=== PATIENT | female | born 1950 | race Two or more races ===

== ENCOUNTER 2023-04-18 03:35 | Emergency (ER) | payer MEDICARE, SELFPAY ==
--- NOTE | ~2023-04-18 | CT_ITS ---
EXAMINATION: CT ABDOMEN AND PELVIS WITHOUT CONTRAST CLINICAL INFORMATION: Abdominal pain, distention and vomiting. COMPARISON: None available. TECHNIQUE: Multidetector volumetric imaging was performed from the superior aspect of the liver through the pubic symphysis. Sagittal and coronal reformatted images were obtained on the technologist's workstation. This CT examination was performed using dose optimization techniques as appropriate, variously including the following: *Automated exposure control *Adjustment of mA and/or kV according to patient size (this includes techniques or standardized protocols for targeted exams where dose is matched to indication/reason for exam; i.e. extremities or head) *Use of iterative reconstruction technique DLP: 597 mGy-cm FINDINGS: LUNG BASES: There is dependent bibasilar and right middle lobe atelectasis. The heart size is normal. LIVER, GALLBLADDER, AND BILIARY TREE: The liver is normal in size, shape, and attenuation. No focal hepatic lesion or biliary ductal dilatation is present. The gallbladder is unremarkable with no evidence of radiopaque gallstones, gallbladder wall thickening, or obvious pericholecystic inflammatory changes. PANCREAS: Unremarkable. SPLEEN: Unremarkable. ADRENAL GLANDS: Unremarkable. KIDNEYS AND URETERS: The kidneys are normal in size, shape, and attenuation. No hydronephrosis, hydroureter, or calculi seen. No perinephric stranding. BLADDER: Unremarkable. GASTROINTESTINAL TRACT: There is scattered diverticuli stool and gas seen throughout the colon without any distention or diverticulitis. The small bowel loops are normal caliber. Appendix is normal caliber.. There is no inflammatory process, free air or free fluid. ABDOMINAL WALL: No significant hernia is appreciated. LYMPH NODES: Normal. VASCULAR: Unremarkable. PELVIC VISCERA: Unremarkable. OSSEOUS STRUCTURES: There are degenerative disc changes with vacuum disc phenomena L4-L5 disc level and grade 1 retrolisthesis L4 over L5. No aggressive lytic or sclerotic process seen. The paravertebral soft tissues are normal. CT/CT abdomen pelvis wo IV con IMPRESSION: No acute intra-abdominal process seen. Colonic diverticulosis without diverticulitis. Mild constipation. Fleischner guidelines were followed.
[2023-04-18 03:37] VITALS: BP 154/69; PULSE 94; RESP 16; TEMP 36.7; O2SAT 94; BMI 30.7
--- NOTE | 2023-04-18 03:48 | PC.NURSE ---
Pt a&o, no sob or chest pain, pt reports having n/v since 11pm, had a hx of this 5 months ago, has been seen in GI, but no dx regarding symptom. Pt changed over, Labs collected and sent, Iv placed. Will continue to monitor.
[2023-04-18 03:55] LABS: Basophils Percent Auto 0.4 % (0-2); Eosinophils Absolute Auto 0.1 X10*3/uL (0.0-0.4); Eosinophils Percent Auto 0.6 % (0-4); Hematocrit 42.8 % (37.0-47.0); Hemoglobin 14.1 g/dl (12.0-16.0); Imm Gran Abs Auto 0.04 X10*3/uL (0.00-0.03); Imm Gran Pct Auto 0.4 % (0.0-0.4); Lymphocytes Absolute Auto 1.4 X10*3/uL (1.2-4.9); Lymphocytes Percent Auto 13.7 % (20-40); MANUAL DIFF FLAG NO; Mean Corpuscular HGB Conc 32.9 g/dl (31.0-35.0); Mean Corpuscular Hemoglobin 28.8 pg (27.0-33.0); Mean Corpuscular Volume 87.5 fL (80.0-98.0); Mean Platelet Volume 10.4 fL (9.4-12.3); Monocytes Absolute Auto 0.8 X10*3/uL (0.1-1.2); Monocytes Percent Auto 7.6 % (2-11); Neutrophils Percent Auto 77.3 % (45-73); Platelet Count 235 X10*3/uL (160-400); Red Blood Count 4.89 X10*6/uL (4.20-5.50); Red Cell Distribution Width 12.7 % (11.0-16.0); White Blood Count 10.4 X10*3/uL (4.8-10.8)
[2023-04-18 04:13] LABS: Alanine Aminotransferase 19 U/L (0-31); Alkaline Phosphatase 75 U/L (39-117); Anion Gap 14 (12-20); Aspartate Amino Transferase 27 U/L (5-31); Bilirubin Direct 0.1 mg/dL (0.0-0.5); Bilirubin Total 0.7 mg/dL (0.0-1.0); Blood Urea Nitrogen 26 mg/dL (9-16); Calcium 9.4 mg/dL (8.4-10.2); Carbon Dioxide 27 mmol/L (22-29); Chloride 104 mmol/L (96-108); Creatinine Clr Calc Pharmacy 51.3; Estimated Glomerular Filt Rate 60; Glucose Random 161 mg/dL (60-115); Lipase 18 U/L (8-78); Potassium 4.1 mmol/L (3.3-5.1); Sodium 141 mmol/L (135-145); Total Protein 7.9 g/dL (6.5-8.0)
--- NOTE | 2023-04-18 04:31 | ED_ITS ---
HPI - Nausea/Vomiting/Diarrhea General Chief complaint: Nausea/Vomiting/Diarrhea Stated complaint: Vomiting Time Seen by Provider: 04/18/23 04:31 Source: patient and family (Daughter in-law) Mode of arrival: EMS Limitations: no limitations History of Present Illness HPI Narrative: 72-year-old female who presents emergency department for evaluation of nausea vomiting abdominal pain. Patient states that her symptoms started at 23:00 hours. She has vomited at least 7 times. She denies any blood in the emesis. She points to her epigastric area when asked to localize the pain. She describes the pain is a constant, pressure-like pain. She does feel bloated. She had a normal bowel movement yesterday and she believes she is passing gas a regular basis. She states that she is feeling very weak. She denied diarrhea, bloody stools or dark tarry stools. She states she is feeling very weak. Past surgical history significant for cervical cancer with hysterectomy and bilateral oophorectomy. Related Data Previous Rx's Medication Instructions Recorded ondansetron 4 mg disintegrating 4 mg PO Q6-8H PRN nausea and 04/18/23 tablet vomiting #14 tabs Allergies Allergy/AdvReac Type Severity Reaction Status Date / Time tetanus and diphtheria Allergy Rash Verified 04/18/23 03:43 toxoids Review of Systems Review of Systems: Yes all other systems are reviewed and are negative [facility] Past Medical History [facility] Narrative: Past medical history: Hypertension, hyperlipidemia, cervical cancer. Surgical history: Hysterectomy and bilateral salpingo oophorectomy secondary to cervical cancer diagnosed 1 year prior. Social history: She denies tobacco, alcohol and drug use. Social History Social History Advance Directives: No Advance Directives Information Provided: Yes Physical Exam Vital Signs: Vital Signs: Last Vital Signs Temp 98.0 F 04/18/23 03:37 Pulse 64 04/18/23 06:07 Resp 16 04/18/23 06:07 BP 135/50 L 04/18/23 06:07 Pulse Ox 98 04/18/23 06:07 O2 Del Method Room Air 04/18/23 06:07 BMI result Body Mass Index 30.7 Const: Other: Awake, alert, female patient, pleasant, cooperative, she was dry heaving when I went in the room. Answers all questions appropriate HEENT: Head: Yes normal to inspection, Yes normocephalic and Yes atraumatic Ears: external ears normal General nose exam: Normal external nose present Face and sinus: Yes normal facial exam Mouth: Normal oral and palatal mucosa present Throat: Yes posterior oropharynx normal Eyes: General: appearance normal, both eyes and all related structures Pupils: Equal, round and reactive pupils present Neck: Neck: Yes normal visual inspection, Yes no lymphadenopathy, Yes trachea midline and Yes supple Chest: Chest palpation & inspection: normal inspection of the chest and normal palpation of entire chest wall Resp: Effort & Inspection: normal respiratory effort and able to speak in complete sentences Auscultation: clear to auscultation bilaterally Cardio: Rate: regular rate Rhythm: regular rhythm Heart sounds: S1 normal heart sound present, S2 normal heart sound present and no murmurs GI: Other: Patient's abdomen appears to be distended, she has hyperactive bowel sounds, she has mild diffuse tenderness with moderate epigastric tenderness, there is no dayday ound, no voluntary or involuntary guarding. : General: Yes no CVA tenderness Back/Spine/Pelvis: Back: no CVA tenderness Skin: General skin exam: no rashes or lesions noted Neuro: Cranial nerves: Yes CN's II-XII intact bilaterally and Yes Equal, round and reactive pupils present Cognition (Neuro): normal cognition Motor exam (neuro): 5/5 motor strength present throughout Extrem: General: Yes normal to inspection Psych: Appearance: grossly normal Speech and movement: Normal speech and movement present Affect: normal affect Attitude: cooperative Thought process: Normal thought process present Thought content: Normal thought content present Medications Administered Discontinued Medications Generic Name Dose Route Start Last Admin Trade Name Freq PRN Reason Stop Dose Admin Sodium Chloride 1,000 mls @ 999 mls/hr 04/18/23 04:38 04/18/23 04:51 Ns IV 04/18/23 05:38 999 mls/hr .Q1H1M STA Administration Ketorolac Tromethamine 15 mg 04/18/23 04:38 04/18/23 04:51 Ketorolac Tromethamine 15 Mg/Ml Vial IVPUSH 04/18/23 04:39 15 mg ONCE STA Administration Ondansetron HCl 4 mg 04/18/23 04:38 04/18/23 04:51 Ondansetron Hcl 4 Mg/2 Ml Vial IVPUSH 04/18/23 04:39 4 mg ONCE ONE Administration Medical Decision Making Medical Decision Making [facility] Narrative: 72-year-old female who presents emergency department for evaluation of nausea, vomiting and abdominal pain which began at 23:00 hours yesterday. Patient states that her abdomen is distended but she did have a normal bowel movement yesterday and has been passing gas. Patient has a history of cervical cancer diagnosed 1 year prior and had a hysterectomy and bilateral salpingo oophorectomy. Vital signs revealed an elevated blood pressure 154/69 otherwise unremarkable. Abdomen appears to be distended she has have hyperactive bowel sounds, she has diffuse abdominal tenderness with increased epigastric tendernes s. Following tests were ordered: CBC, CMP, lipase, COVID-19, urinalysis, CT scan of the abdomen pelvis without IV contrast. 0714: Patient's laboratory evaluation is unremarkable. CT scan of the abdomen pelvis without IV contrast was unremarkable with no bowel obstruction/diverticulitis Patient is feeling better after the above treatment. Patient most likely has viral syndrome as the cause her symptoms She was prescribe Zofran and advised to take Tylenol and ibuprofen. She was given printed instructions discharged home. Differential Diagnosis Differential Diagnoses: The differential diagnosis associated with the presentation includes Differential diagnosis includes was not limited to small-bowel obstruction, viral syndrome, gastritis, COVID-19, pancreatitis, colitis Admission/Observation Consideration of admission/observation: Escalation of care including admission/observation considered Lab Data [facility] Lab Attestation statement: I reviewed the patient's lab results. My interpretation patient's laboratory evaluation is as follows: CBC was normal. BUN elevated 26 with a normal creatinine of 0.92. Glucose elevated 161. LFTs normal. Lipase normal 04/18/23 03:51 04/18/23 03:51 Labs: Lab Results 04/18/23 04/18/23 04/18/23 Range/Units 03:51 03:51 04:59 WBC 10.4 (4.8-10.8) X10*3/uL RBC 4.89 (4.20-5.50) X10*6/uL Hgb 14.1 (12.0-16.0) g/dl Hct 42.8 (37.0-47.0) % MCV 87.5 (80.0-98.0) fL MCH 28.8 (27.0-33.0) pg MCHC 32.9 (31.0-35.0) g/dl RDW 12.7 (11.0-16.0) % Plt Count 235 (160-400) X10*3/uL MPV 10.4 (9.4-12.3) fL Immature Gran % (Auto) 0.4 (0.0-0.4) % Neut % (Auto) 77.3 H (45-73) % Lymph % (Auto) 13.7 L (20-40) % [place] % (Auto) 7.6 (2-11) % Eos % (Auto) 0.6 (0-4) % Baso % (Auto) 0.4 (0-2) % Lymph # (Auto) 1.4 (1.2-4.9) X10*3/uL [place] # (Auto) 0.8 (0.1-1.2) X10*3/uL Eos # (Auto) 0.1 (0.0-0.4) X10*3/uL Baso # (Auto) 0.0 (0.0-0.2) X10*3/uL Abs Immat Gran (auto) 0.04 H (0.00-0.03) X10*3/uL Absolute Neuts (auto) 8.0 (2.0-8.3) x10*3/uL Absolute Nucleated RBC 0.000 (0.0-0.012) X10*3/uL Nucleated RBC % (auto) 0.0 (0.0-0.2) /100WBC Sodium 141 (135-145) mmol/L Potassium 4.1 (3.3-5.1) mmol/L Chloride 104 (96-108) mmol/L Carbon Dioxide 27 (22-29) mmol/L Anion Gap 14 (12-20) BUN 26 H (9-16) mg/dL Creatinine 0.92 (0.5-1.4) mg/dL Estim Creat Clear Calc 51.3 Estimated GFR 60 Random Glucose 161 H (60-115) mg/dL Calcium 9.4 (8.4-10.2) mg/dL Total Bilirubin 0.7 (0.0-1.0) mg/dL Direct Bilirubin 0.1 (0.0-0.5) mg/dL AST 27 (5-31) U/L ALT 19 (0-31) U/L Alkaline Phosphatase 75 (39-117) U/L Total Protein 7.9 (6.5-8.0) g/dL Albumin 4.0 (3.5-5.0) g/dL Lipase 18 (8-78) U/L COVID-19 (YI) Negative (Negative) COVID-19 Clin Com See Note Radiology Impression Discussion of test interpretation with radiology: I have reviewed the radiologist's reading. Radiologist Impression: CT abdomen pelvis wo IV con IMPRESSION: No acute intra-abdominal process seen. Colonic diverticulosis without diverticulitis. Mild constipation. Fleischner guidelines were followed. Dictated By:Magan May MD Independent Historian Clinical information obtained from an independent historian. History obtained f rom or confirmed by: Other (Daughter line) Discharge Plan Discharge Clinical Impression: Viral syndrome, Acute dehydration Vomiting Qualifiers: Vomiting type: unspecified Nausea presence: with nausea Qualified Code(s): R11.2 - Nausea with vomiting, unspecified Abdominal pain Qualifiers: Abdominal location: generalized Qualified Code(s): R10.84 - Generalized abdominal pain Patient Disposition: Home, Self-Care Instructions: Viral Syndrome (ED), Abdominal Pain (ED) Additional Instructions: Your blood work was unremarkable. The CT scan of your abdomen and pelvis without IV contrast did not reveal a neida r cause for your pain. Your symptoms most likely caused by a viral infection. Take Zofran ODT 4 mg pills, 1 pill dissolved in your mouth every 8 hours as needed for nausea and vomiting. Take ibuprofen 200 mg pills, 2 pills every 6 hours as needed for pain or fever. Take Tylenol (acetaminophen) 500 mg pills, 2 pills every 6 hours as needed for pain or fever. Follow-up with your doctor in 2 days. Please return to the emergency department if your symptoms get worse or if you develop any symptoms that are concerning to you. Prescriptions: New ondansetron 4 mg tablet,disintegrating 4 mg PO Q6-8H PRN (Reason: nausea and vomiting) Qty: 14 0RF
[2023-04-18] MEDS: Ketorolac Tromethamine 15 MG/ML VIAL IVPUSH (04:51)
[2023-04-18] MEDS: 0.9 % Sodium Chloride 1,000 ML 999 ML IV (04:51)
[2023-04-18] MEDS: ondansetron HCL 4 MG/2 ML VIAL IVPUSH (04:51)
[2023-04-18 05:16] LABS: COVID-19 Test Negative (Negative); IDNOW Serial# 6674DD1D
[2023-04-18 06:07] VITALS: BP 135/50; PULSE 64; RESP 16; O2SAT 98
[2023-04-18 07:10] VITALS: BP 154/50; PULSE 64; RESP 14; TEMP 36.5; O2SAT 97
== END 2023-04-18 08:30 | disposition home or self-care (01) ==
PROVIDERS: Emergency Provider Emergency Medicine Emergency Medical Services
DX: B34.9 Viral infection, unspecified (principal); E86.0 Dehydration; R11.2 Nausea with vomiting, unspecified; R10.84 Generalized abdominal pain; Z20.822 Contact with and (suspected) exposure to COVID-19; Z20.828 Contact with and (suspected) exposure to other viral communicable diseases; Z79.899 Other long term (current) drug therapy
CPT/HCPCS: 36415; 74176; 80053; 82248; 83690; 85025; 87635; 96374; 96375; 99284; J1885; J2405